=== PATIENT | male | born 1980 | race Caucasian/White ===

== ENCOUNTER 2024-09-19 19:01 | Emergency (ER) | payer MEDICAID ==
[~2024-09-19] VITALS: Ht 175.3 cm; Wt 75.0 kg
[2024-09-19 19:03] VITALS: O2SAT 98
[2024-09-19] MEDS: ONDANSETRON HCL 4MG/2ML INJ IV STA (21:30)
[2024-09-19] MEDS: MORPHINE SULFATE 4 MG/ML INJ (FOR IV/IM USE) IV STA (21:30)
[2024-09-19] MEDS: SODIUM CHLORIDE 0.9% 1,000 ML IV ONE (21:31)
[2024-09-19 21:39] LABS: BASOPHILS % 0.4 % (0.0-2.0); EOSINOPHILS % 0.9 % (0.0-5.0); HEMATOCRIT. 42.5 % (42.0-52.0); HEMOGLOBIN. 14.8 g/dL (14.0-18.0); LYMPHOCYTES % 30.1 % (20.0-50.0); MEAN CORPUSCULAR HEMOGLOBIN 30.9 pg (28.0-32.0); MEAN CORPUSCULAR HGB CONC 34.8 g/dL (31.0-37.0); MEAN PLATELET VOLUME 8.2 fl (7.4-10.4); MONOCYTES % 6.2 % (2.0-8.0); NEUTROPHILS % 62.4 % (40.0-76.0); PLATELET 250 x1000/uL (130-400); RED BLOOD CELL COUNT 4.78 mill/uL (4.7-6.1); RED CELL DISTRIBUTION WIDTH 13.4 % (11.6-14.6); WHITE BLOOD COUNT 6.5 x1000/uL (4.5-11.0)
[2024-09-19 21:53] LABS: CHLORIDE 107 mEq/L (98-107); POTASSIUM 3.9 mEq/L (3.5-5.1); SODIUM 141 mEq/L (136-145)
[2024-09-19 21:54] LABS: CALCIUM 9.4 mg/dL (8.7-10.4); CARBON DIOXIDE 24 mEq/L (21-32)
[2024-09-19 21:58] LABS: PARTIAL THROMBOPLASTIN TIME 27.4 sec (23.4-31.0)
[2024-09-19 21:59] LABS: CREATININE 0.9 mg/dL (0.6-1.3); GLUCOSE 102 mg/dL (70-105); UREA NITROGEN BLOOD 15 mg/dL (9-23)
[2024-09-19] MEDS ORDERED: IBUP-2028 MT (22:56)
[2024-09-19 23:26] VITALS: BP 131/79; PULSE 88; RESP 18; TEMP 36.7; O2SAT 98
== END 2024-09-19 23:27 | disposition home or self-care (01) ==
LOC: ER 19:19
DX: M54.50 Low back pain, unspecified (principal); M25.551 Pain in right hip; R51.9 Headache, unspecified; V23.41XA Electric (assisted) bicycle driver injured in collision with car, pick-up truck or van in traffic accident, initial encounter; Y93.55 Activity, bike riding; Y92.89 Other specified places as the place of occurrence of the external cause; Y99.8 Other external cause status
CPT/HCPCS: 80048; 85025; 85610; 85730; 86850; 86900; 86901; 36415; 73552; 70450; 72128; 72131; 72192; 96361; 96374; 96375; 99285; J2405; J2270; J7030; Z7610